=== PATIENT | female | born 1970 | race Caucasian/White ===

== ENCOUNTER 2018-03-09 06:36 | Day surgery (SDC) | payer OTHER ==
[~2018-03-09] VITALS: Ht 160 cm; Wt 78.9 kg
[2018-03-09 06:57] VITALS: BP 136/98
[2018-03-09 07:08] VITALS: BP 136/98
[2018-03-09 13:03] VITALS: BP 130/85
== END 2018-03-09 12:20 | disposition home or self-care (01) ==
LOC: DS 06:36 → OR 09:00 → DS 09:00
PROVIDERS: Neuromusculoskeletal Medicine, Sports Medicine
PROC: 0MN20ZZ Release Left Shoulder Bursa and Ligament, Open Approach (ICD-10-PCS; principal; 2018-03-09 07:30)
DX: M75.52 Bursitis of left shoulder (principal)
CPT/HCPCS: J0690; J1170; J2250; J2704; J3010; J3490; J7120